=== PATIENT | female | born 1965 | race Caucasian/White ===

== ENCOUNTER 2016-10-23 23:33 | Inpatient (IN) ==
[2016-10-24 00:29] LABS: MANUAL DIFF NEEDED? NO
[2016-10-24] MEDS ORDERED: ZOFRAN IV ONE (00:31)
[2016-10-24] MEDS ORDERED: PHENERGAN IV ONE (00:31)
[2016-10-24] MEDS ORDERED: SODIUM CHLORIDE 0.9% INJ ONE (00:31)
[2016-10-24] MEDS ORDERED: MORPHINE IV ONE (00:31)
[2016-10-24] MEDS ORDERED: NS 1,000 ML IV ONE ×3 (00:32→03:58)
[2016-10-24 00:41] LABS: HEMATOCRIT 43.5 % (37.0-47.0); MCH 31.3 PG (27-31); MCHC 34.5 g/dL (33-37); MCV 90.6 FL (81-99); MPV 10.2 FL (7.4-10.4); PLT 334 X1000 (130-400)
[2016-10-24 00:42] LABS: BASO% 0.2 % (0.0-0.8); EOS# 0.01 X1000 (0.0-0.7); EOS% 0.1 % (0.0-10.0); IMM GRAN# 0.04 X1000 (0.0-0.04); IMM GRAN% 0.2 % (0.0-0.5); LYMPH# 1.46 X1000 (1.2-3.4); LYMPH% 8.5 % (20.5-51.1); MONO# 0.42 X1000 (0.11-0.59); MONO% 2.4 % (1.7-9.3); NEUT% 88.6 % (42.2-75.2)
[2016-10-24 00:58] LABS: AGAP 15; ALBUMIN 4.8 g/dL (3.5-5.0); ALKALINE PHOSPHATASE 113 U/L (32-104); AMYLASE 51 U/L (20-200); BUN 10 mg/dL (8-22); CALCIUM 10.4 mg/dL (8.8-10.2); CHLORIDE 91 mmol/L (98-107); COSMO 266; GOT 26 U/L (10-30); GPT 17 U/L (10-36); LIPASE 11 U/L (13-60); POTASSIUM 3.9 mmol/L (3.5-5.1); SODIUM 131 mmol/L (136-145); TCO2 25 mmol/L (25-35); TOTAL PROTEIN 8.4 g/dL (6.3-8.3)
[2016-10-24] MEDS ORDERED: DILAUDID IV ONE ×2 (02:16→05:16)
[2016-10-24] MEDS ORDERED: ZOFRAN IV PRN (02:17)
[2016-10-24] MEDS ORDERED: ZOSYN 3.375 GM/NS 3.375 GM/50 ML IVPB IV ONE (03:51)
[2016-10-24] MEDS ORDERED: LABETALOL ONE (05:07)
[2016-10-24] MEDS ORDERED: LABETALOL IV ONE (05:13)
[2016-10-24] MEDS ORDERED: DILAUDID ONE ×2 (05:20→19:19)
[2016-10-24] MEDS: ZOSYN IV SCH ×3 (07:50→17:48)
[2016-10-24] MEDS: [UNRECOGNIZED DRUG - OTHER] IV SCH ×3 (07:50→17:48)
--- NOTE | 2016-10-24 07:50 | Diag Imaging Result Document ---
PROCEDURE NAME: CT ABD/PELVIS W/ IV CONT ONLY - 10/24/2016 CT ABDOMEN AND PELVIS WITH INTRAVENOUS CONTRAST: TECHNIQUE: Dose-reduction protocol. FINDINGS: There is fatty infiltration of the liver. No focal hepatic abnormality. Normal spleen, pancreas, adrenal glands, gallbladder, and kidneys. No hydronephrosis. Moderate atherosclerosis. No aneurysmal dilatation to the abdominal aorta. There are distended small bowel loops in the upper, mid, and left abdomen. The distal small bowel loops are not dilated and the colon is not dilated. The uterus has been removed. No pelvic mass. [id number] amount of free fluid within the pelvis. No free air. No abscess. I believe the appendix has been removed. IMPRESSION: 1. Small bowel obstruction. This may represent a closed loop obstruction. 2. Fatty infiltration of the liver. 3. Hysterectomy with free fluid within the pelvis. A preliminary report was given at 1:44 a.m.
--- NOTE | 2016-10-24 07:56 | Diag Imaging Result Document ---
PROCEDURE NAME: ABRAHAM ABDOMEN - 10/24/2016 KUB: FINDINGS: There is an NG tube with its tip coiled in the fundus of the stomach. There are surgical clips in the pelvis. There is some retained contrast medium in the urinary bladder and collecting system of both kidneys. There is no evidence of hydronephrosis. IMPRESSION: No evidence of acute disease.
--- NOTE | 2016-10-24 08:07 | Diag Imaging Result Document ---
PROCEDURE NAME: CHEST-PORTABLE - 10/24/2016 PORTABLE CHEST, 10/24/2016 AT 0432 HOURS: FINDINGS: There is an NG tube which appears to pass to the gastroesophageal junction. There is no evidence of acute cardiac or pulmonary disease. IMPRESSION: NG tube in distal esophagus.
[2016-10-24 08:37] LABS: URINE CULTURE NEEDED? NO
[2016-10-24 08:48] LABS: BILIRUBIN URINE NEGATIVE (NEGATIVE); BLOOD URINE NEGATIVE (NEGATIVE); COLOR YELLOW; GLUCOSE URINE NEGATIVE (NEGATIVE); LEUKOCYTES URINE NEGATIVE (NEGATIVE); NITRITE URINE NEGATIVE (NEGATIVE); PH URINE 8.5; PROTEIN URINE 70 mg/dL (NEGATIVE); TURBIDITY URINE CLEAR (CLEAR); UROBILINOGEN URINE NORMAL (NORMAL)
[2016-10-24 08:49] LABS: URINE MICRO REVIEW NEEDED? YES
[2016-10-24 08:52] LABS: UR EPITHELIAL CELLS <10 /HPF (<10); URINE BACTERIA NEGATIVE /HPF; URINE RBC <10 /HPF (<10); URINE WBC <10 /HPF (<10)
[2016-10-24] MEDS: MORPHINE IV PRN ×2 (09:02→13:44)
[2016-10-24 09:03] LABS: HEMATOCRIT 42.5 % (37.0-47.0); HEMOGLOBIN 14.6 g/dL (12.0-16.0); MCH 31.7 PG (27-31); MCHC 34.4 g/dL (33-37); MCV 92.4 FL (81-99); MPV 10.7 FL (7.4-10.4); RBC 4.6 XMIL (4.2-5.4)
--- NOTE | 2016-10-24 09:06 | HISTORY AND PHYSICAL ---
ADMITTING DIAGNOSIS: Recurrent bowel obstruction. HISTORY OF PRESENT ILLNESS: A 51-year-old female with multiple medical comorbidities, presenting with abdominal pain. She has had several small bowel obstructions starting after a C- section and has had at least exploratory laparotomy, by patient's report 5-6 times with lysis of adhesions. She has had no bowel resections at that time. She reports that she did have initial abdominal pain described initially as kind of diffuse and cramping and says it is slightly more intense than her previous one. She did have a NG tube placed in the emergency room and has been hemodynamically stable in the emergency department. Says her pain is somewhat better. Transferred her over from [place]. PAST MEDICAL HISTORY: 1. Coronary artery disease with previous stents. 2. Hypertension. 3. Hyperlipidemia. PAST SURGICAL HISTORY: 1. Includes previous heart catheterization. 2. Multiple abdominal surgeries for bowel obstructions. 3. section. FAMILY HISTORY: Reviewed with patient and noncontributory. SOCIAL HISTORY: Reports alcohol and tobacco. ALLERGIES: None reported. HOME MEDICATIONS: Include Ambien and Seroquel. REVIEW OF SYSTEMS: A full 10 point review of systems obtained. Negative, except as specified in history of present illness. PHYSICAL EXAMINATION: VITAL SIGNS: Patient is currently afebrile. Temperature 98.5 degrees, pulse is regular at 95, respiratory rate nonlabored at 20, blood pressure 143/98. O2 saturation 100% on room air. GENERAL: No acute distress. female, resting in her bed. HEENT: Normocephalic, atraumatic. Pupils equal, round, reactive to light. Mucous membranes moist. Oropharynx benign. NG tube in place. Trachea midline. NECK: Supple. CARDIOVASCULAR: Regular rate and rhythm. LUNGS: Grossly clear. ABDOMEN: Soft, nondistended. Only minimal tenderness to palpation on exam this morning. No peritoneal signs. EXTREMITIES: Moves all extremities. NEUROLOGIC: Grossly intact. SKIN: No signs of jaundice. VASCULAR: All extremities perfused. LABORATORY: From early this morning white blood cell count is 17, hematocrit 43. Sodium is 131, chloride is 91. CT scan independently reviewed and radiology report reviewed. There is what appears to be a bowel obstruction likely related to adhesions. There is the potential for a closed looped obstruction. She does have air and stool pass this area. ASSESSMENT/PLAN: A 51-year-old, female with recurrent small-bowel obstruction and multiple medical comorbidities. 1. Recurrent small bowel obstruction. At this time, the patient has an NG tube. Had some relief of her symptoms. We will try conservative nonoperative management. Currently plan on surgical intervention if her clinical scenario and situation changes. We will get a small- bowel follow-through here today to see if there is any actual obstruction. We will follow up with results. Again, the patient does not look septic or have tachycardia. Overall clinical picture appear stable so we will see what that result is. Also order lactic acid level. 2. Medical comorbidities at this time. We will monitor. cc: Guillaume Gardner MD
[2016-10-24 09:13] LABS: URINE CASTS NONE SEEN; URINE CRYSTALS NONE SEEN; URINE SMALL ROUND CELLS NONE SEEN
[2016-10-24 09:14] LABS: URINE SOURCE CATH
[2016-10-24] MEDS ORDERED: SODIUM CHLORIDE 0.9% 20 ML ONE (17:06)
[2016-10-24] MEDS ORDERED: MARCAINE 0.25% PF ONE (17:06)
[2016-10-24] MEDS ORDERED: EXPAREL 1.3% ONE (17:07)
[2016-10-24] MEDS ORDERED: PEPCID ONE (17:07)
[2016-10-24] MEDS ORDERED: VERSED ONE (17:24)
[2016-10-24] MEDS ORDERED: CLAVE SECONDARY SET 11953 ONE (17:24)
--- NOTE | 2016-10-24 17:58 | Diag Imaging Result Document ---
PROCEDURE NAME: SMALL BOWEL SERIES ONLY - 10/24/2016 SMALL BOWEL SERIES: FINDINGS: Barium was placed into the stomach through the patient's nasogastric tube. Nine films through 6 hours obtained. There is normal passage of barium through the stomach into the duodenum. The duodenum is not dilated. A proximal to mid jejunal loop is dilated. No contrast goes distal to this area from 2 to 6 hours. There is air distended loop of bowel lateral to the loops filled with oral contrast. IMPRESSION: Small bowel obstruction. [facility]
[2016-10-24] MEDS ORDERED: LR 1,000 ML ONE (19:03)
[2016-10-24] MEDS ORDERED: MORPHINE PCA ONE (19:06)
[2016-10-24] MEDS ORDERED: FENTANYL ONE (19:19)
[2016-10-24] MEDS ORDERED: DIPRIVAN 1% ONE (19:19)
[2016-10-24] MEDS ORDERED: MORPHINE PCA IV PRN (20:23)
[2016-10-24] MEDS ORDERED: NARCAN IV PRN (20:23)
--- NOTE | 2016-10-24 22:33 | OPERATIVE NOTE ---
PROCEDURE DATE: 10/24/2016 PREOPERATIVE DIAGNOSIS: Small-bowel obstruction. POSTOPERATIVE DIAGNOSIS: 1. Closed loop small bowel obstruction secondary to volvulus secondary to adhesions. PROCEDURE: 1. Exploratory laparotomy. 2. Reduction of internal volvulus. 3. Lysis of adhesions. SURGEON: Guillaume Gardner MD FLORAL ARRANGER: None. ANESTHESIA: General tracheal intraoperative. FINDINGS: Segment of distal jejunum with closed loop obstruction because of 2 adhesive bands to the omentum. These were easily broken up. The bowel itself was viable and had a strong signal by Doppler. COMPLICATION: None at time of dictation. ESTIMATED BLOOD LOSS: 20 mL. SPECIMENS REMOVED: None. BRIEF HISTORY: The patient is a 51-year-old female with a significant past surgical history, presenting now with abdominal pain and what appeared to be a potential for closed loop small bowel obstruction by CT scan. We had placed an NG tube and did a small-bowel follow-through which did not show contrast going past this point. Her abdominal exam was worsening; therefore, we elected to take her back to the operating room. The risks, benefits, and alternatives were discussed. All questions answered. DESCRIPTION OF PROCEDURE: After informed consent was obtained, patient brought to the operative theatre, transferred to the operating table and placed in supine position. General endotracheal anesthesia was then performed without complication. A formal time-out was then performed confirming patient, date, procedure. All were in agreement. At that time, the patient after she had been prepped and draped we made a standard midline incision to enter into the abdomen. There were some adhesions and the omentum was noted to be stuck right up to abdominal wall. We took this down sharply. Once we had taken down a sufficient amount of the adhesions, we were able to eviscerate the small bowel. I was able to break up two adhesive bands that were located just to the left of the midline. This appeared to be causing her obstruction. We were able to eviscerate the small bowel. There was a segment of distal jejunum that appeared to be inflamed, but viable. It was the obvious point of obstruction. There was decompressed bowel distal to it. Once we had eviscerated, we did detorse the volvulus. Again, the bowel was viable. There were no serosal injuries. There were no areas of necrosis. We did place a Doppler on the small bowel and noted a strong signal. We elected to not resect any bowel. We were able to milk past the 2 adhesive bands that were not causing an ischemic stricture. The remainder of the abdomen did have dense adhesions, but since we had found the point of obstruction, we elected to not cause any more harm. We irrigated out the abdomen copiously, then closed the abdomen in the standard fashion using chromic for the peritoneum and loop PDS run from either side for the fascia. We placed abdullahi on the skin. The patient tolerated procedure well, was transferred to the ICU in stable condition. Postoperatively, we will keep her NG tube and wait return of bowel function. cc: Guillaume Gardner MD
[2016-10-24] MEDS: SODIUM CHLORIDE 0.9% INJ SCH (23:03)
[2016-10-24] MEDS: LR 1,000 ML IV SCH (23:03)
[2016-10-24] MEDS: PROTONIX IV SCH (23:03)
[2016-10-24] MEDS: HEPARIN SUBQ SCH (23:03)
[2016-10-25] MEDS: [UNRECOGNIZED DRUG - OTHER] IV SCH ×4 (00:30→18:02)
[2016-10-25] MEDS: ZOSYN IV SCH ×4 (00:30→18:02)
[2016-10-25] MEDS: HEPARIN SUBQ SCH ×3 (05:35→20:50)
--- NOTE | 2016-10-25 07:48 | PROGRESS NOTE ---
DATE: 10/25/2016 SUBJECTIVE: Patient doing well after her exploratory laparotomy. Says her pain is improved. She is just sore from her incision. No passage of flatus yet. OBJECTIVE: Vital Signs: Patient is currently afebrile. Her vital signs are stable. General: No acute distress. Cardiovascular: Regular rate and rhythm. Lungs: Grossly clear. Abdomen: Soft, appropriately tender. Hypoactive bowel sounds. Extremities: Moves all extremities. Neurologic: Grossly intact. Skin: No signs of jaundice. LABORATORY: None today. ASSESSMENT AND PLAN: A 51-year-old, female, postoperative day 1 from exploratory laparotomy and reduction of internal volvulus from adhesions. Postoperative state at this time, patient has NG tube. We will keep NG tube in place until she has return of bowel function. Suspect this may take a couple of days. Overall, the clinical picture is improving. We will continue to follow. cc: Guillaume Gardner MD
[2016-10-25] MEDS ORDERED: NEOSTIGMINE ONE (08:39)
[2016-10-25] MEDS ORDERED: EXTENSION SET 32 IN 4522 ONE (08:39)
[2016-10-25] MEDS ORDERED: ZOFRAN ONE (08:39)
[2016-10-25] MEDS ORDERED: ANESTHESIA PB SET 88 IN 5742 ONE (08:39)
[2016-10-25] MEDS ORDERED: LR 2,000 ML ONE (08:39)
[2016-10-25] MEDS ORDERED: NORCURON ONE (08:39)
[2016-10-25] MEDS ORDERED: XYLOCAINE-MPF 2% ONE (08:39)
[2016-10-25] MEDS ORDERED: SODIUM CHLORIDE 0.9% 10 ML ONE (08:39)
[2016-10-25] MEDS ORDERED: QUELICIN (DOSE) ONE (08:39)
[2016-10-25] MEDS ORDERED: ROBINUL ONE (08:39)
[2016-10-25] MEDS: PERIDEX MT SCH ×2 (08:50→20:49)
[2016-10-25] MEDS: LR 1,000 ML IV SCH ×3 (12:32→20:48)
[2016-10-25] MEDS: ZOFRAN IV PRN (18:04)
[2016-10-25] MEDS: PROTONIX IV SCH (20:50)
[2016-10-25] MEDS: SODIUM CHLORIDE 0.9% INJ SCH (20:50)
[2016-10-26] MEDS: ZOSYN IV SCH ×4 (01:17→17:30)
[2016-10-26] MEDS: [UNRECOGNIZED DRUG - OTHER] IV SCH ×4 (01:17→17:30)
[2016-10-26] MEDS: ZOFRAN IV PRN ×4 (01:17→17:20)
[2016-10-26] MEDS: LR 1,000 ML IV SCH ×4 (03:41→17:47)
[2016-10-26] MEDS: HEPARIN SUBQ SCH ×3 (05:43→20:39)
--- NOTE | 2016-10-26 06:34 | PROGRESS NOTE ---
DATE: 10/26/2016 SUBJECTIVE: Patient doing well. Pain has improved. She has not passed flatus yet. She is not sick to her stomach. OBJECTIVE: Vital Signs: Patient is currently afebrile. Her heart rate is in the low 100, but she reports this is normal for her; otherwise, vital signs have been stable. General: No acute distress. Cardiovascular: Regular rate and rhythm. Lungs: Grossly clear. Abdomen: Soft, appropriately tender. Bowel sounds auscultated but appear on the hypoactive side. LABORATORY: None today. ASSESSMENT AND PLAN: A 51-year-old, female, postoperative day #2 from exploratory laparotomy with reduction of internal volvulus from adhesions. Postoperative day #2: At this time, patient has a nasogastric tube which we will keep in place. Has 500 recorded of bilious output. Her bowels seem to be returning to function, although we will wait for flatus before removing her nasogastric tube. Once the start her on a liquid diet. We will continue to follow. Overall, her clinical picture is improving. The patient is improving. We will remove her Brooks catheter and let her mobilize a little bit more. cc: Guillaume Gardner MD
[2016-10-26] MEDS: PERIDEX MT SCH ×2 (08:37→20:39)
[2016-10-26] MEDS: PROTONIX IV SCH (20:39)
[2016-10-26] MEDS: SODIUM CHLORIDE 0.9% INJ SCH (20:39)
[2016-10-27] MEDS: ZOSYN IV SCH ×5 (01:11→17:49)
[2016-10-27] MEDS: [UNRECOGNIZED DRUG - OTHER] IV SCH ×5 (01:11→17:49)
[2016-10-27] MEDS: ZOFRAN IV PRN (01:11)
[2016-10-27] MEDS: LR 1,000 ML IV SCH ×4 (02:12→22:33)
[2016-10-27] MEDS: HEPARIN SUBQ SCH ×3 (05:49→22:33)
--- NOTE | 2016-10-27 06:06 | PROGRESS NOTE ---
DATE: 10/27/2016 SUBJECTIVE: The patient is doing well. No nausea. She states she passed a small amount of flatus. No bowel movement. OBJECTIVE: Vital Signs: Patient is currently afebrile. Her vital signs have been stable. General: No acute distress. Cardiovascular: Regular rate and rhythm. Lungs: Clear. Abdomen: Soft, appropriately tender. Bowel sounds auscultated. LABORATORY: None. ASSESSMENT/PLAN: A 51-year-old female, postop day 3 from exploratory laparotomy with reduction of internal volvulus from adhesions. Postop day #3 at this time. We will clamp her NG tube and start her on clear liquids. Monitor her return of bowel function. Overall, clinical status is improving. We will continue to monitor closely. cc: Guillaume Gardner MD
[2016-10-27] MEDS: PERIDEX MT SCH ×2 (09:19→22:33)
[2016-10-27] MEDS: SODIUM CHLORIDE 0.9% INJ SCH (22:33)
[2016-10-27] MEDS: PROTONIX IV SCH (22:33)
[2016-10-28] MEDS: [UNRECOGNIZED DRUG - OTHER] IV SCH (03:34)
[2016-10-28] MEDS: ZOSYN IV SCH (03:34)
[2016-10-28] MEDS: LR 1,000 ML IV SCH (03:34)
[2016-10-28] MEDS ORDERED: NORCO-10 PO PRN (06:17)
[2016-10-28] MEDS ORDERED: XANAX PO PRN (06:18)
[2016-10-28] MEDS: HEPARIN SUBQ SCH ×3 (06:26→23:12)
--- NOTE | 2016-10-28 07:31 | PROGRESS NOTE ---
DATE: 10/28/2016 SUBJECTIVE: The patient is doing well and had a bowel movement. No nausea with her NG tube clamped and tolerating clear liquid diet. OBJECTIVE: Vital Signs: Patient is currently afebrile. Her vital signs have been stable. General: No acute distress. Cardiovascular: Regular rate and rhythm. Lungs: Grossly clear. Abdomen: Soft, appropriately tender. Incision healing well. LABORATORIES: None. ASSESSMENT/PLAN: A 51-year-old female, postop day 3 from exploratory laparotomy with suction of internal volvulus from adhesions. At this time, patient's NG tube will be removed. We will stop her IV fluids. We will start her on a regular diet. 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 pain medicine. Hopefully, she will be able to be discharged home over the weekend. cc: Guillaume Gardner MD
[2016-10-28] MEDS: TYLENOL WITH CODEINE #3 PO SCH ×3 (09:25→23:11)
[2016-10-28] MEDS: PERIDEX MT SCH ×2 (09:25→23:12)
[2016-10-28] MEDS: PATIENT'S OWN MED PO SCH (09:29)
[2016-10-28] MEDS ORDERED: AMBIEN PO SCH (21:00)
[2016-10-28] MEDS ORDERED: SEROQUEL PO SCH (21:00)
[2016-10-28] MEDS: PROTONIX IV SCH (23:11)
[2016-10-29] MEDS: TYLENOL WITH CODEINE #3 PO SCH ×2 (02:36→10:38)
[2016-10-29] MEDS: HEPARIN SUBQ SCH (06:29)
[2016-10-29 07:26] VITALS: BP 159/86
--- NOTE | 2016-10-29 08:56 | PROGRESS NOTE ---
DATE: 10/29/2016 SUBJECTIVE: She feels well. She is passing gas. She is tolerating a regular diet. No real pain Has not required narcotics today. She is voiding and ambulating. OBJECTIVE: Vital signs: She is afebrile. Pulse has been in the 90s for the most part. Blood pressure 159/86, oxygen saturation 90% on room air. General: She is alert. Abdomen: Soft, nontender, nondistended. Incision is clean, dry, and intact with abdullahi. LABS: I reviewed her labs. There is nothing new today. ASSESSMENT AND PLAN: A 51-year-old female status post exploratory laparotomy with lysis of adhesions for a bowel obstruction. She has had return of bowel function. She is tolerating a diet. Pain is controlled. She is voiding. Plan for discharge home today. DISCHARGE MEDICATIONS: She will continue her home medication. I gave her a prescription for [place], Colace, and Zofran. We had detailed postoperative instructions given, what to look out for as far as wound issues, fevers. She is to avoid heavy lifting greater than 10 pounds, see Dr. Gardner in a week for staple removal. Will make further recommendations regarding return to work at that time. cc: MD Guillaume Rivera MD
[2016-10-29] MEDS: PERIDEX MT SCH (09:23)
[2016-10-29] MEDS: PATIENT'S OWN MED PO SCH (09:23)
--- NOTE | 2016-11-02 06:08 | DISCHARGE SUMMARY ---
ADMISSION DATE: 10/24/2016 DISCHARGE DATE: 10/29/2016 ADMITTING DIAGNOSIS: Small-bowel obstruction. DISCHARGE DIAGNOSIS: Status post exploratory laparotomy and lysis of adhesions for small bowel obstruction. ADMITTING PHYSICIAN: Guillaume Gardner MD. CONSULTATIONS: None. PROCEDURES: On 10/24/2016 patient underwent exploratory laparotomy with lysis of adhesions and reduction of internal volvulus secondary to adhesions. BRIEF HISTORY AND COURSE OF STAY: Patient is a 51-year-old female presenting initially with a small-bowel obstruction. We initially tried to do a small-bowel series which showed potential for complete obstruction. Given this and her worsening clinical condition, we elected to take her to the operating room. On the initial day of presentation she was taken to the operating room and underwent previously described procedure which she tolerated well. She improved clinically and over the course of the next several days her bowel function returned. It was felt that on the day of discharge, 10/29/2016, it was safe for the patient to be discharged home, all arrangements were made. She was up ambulating, tolerating p.o., having bowel movements without any difficulty and her incision was healing well. Therefore it is felt the patient is safe to be discharged home. DISPOSITION: Home. DISCHARGE CONDITION: Stable. MEDICATIONS: Patient given a prescription for pain medicine. FOLLOWUP: The patient was told to follow up with me in 1-2 weeks. cc: Guillaume Gardner MD
--- NOTE | 2016-12-01 18:52 | PROVIDER DOCUMENTATION ---
This chart was entered by Nu Bone Scribe, acting as scribe for Daryl Chin DO. HPI-Abdominal Pain/GI Problem - General Chief Complaint: Abdominal Pain Stated Complaint: GALL BLADDER SX Time Seen by Provider: 10/24/16 00:04 Source: patient Allergies/Adverse Reactions: Patient Allergies Allergy/AdvReac Type Severity Reaction Status Date / Time No Known Allergies Allergy Verified 11/04/16 13:17 Home Medications: Home Medication List Medication Instructions Recorded Confirmed Last Taken Type Zolpidem [Ambien] 10 mg PO HS 09/15/12 11/04/16 02/20/15 20:00 History Alprazolam [Xanax] 1 tab PO PRN PRN 01/22/14 11/04/16 02/20/15 20:00 History Quetiapine Fumarate [Seroquel] 100 mg PO QHS 10/24/16 11/04/16 Unknown History Docusate Sodium [Colace] 100 mg PO BID #60 capsule 10/29/16 11/04/16 Unknown Rx Ondansetron HCl [Zofran] 4 mg PO Q4H PRN PRN #10 tablet 10/29/16 11/04/16 Unknown Rx - History of Present Illness-ABD Nature of Presenting Problems: PT IS A 51YOF PRESENTING TO THE ED C/O ABD PAIN. PT STATES SHE BEGAN HAVING ABD PAIN THIS AFTERNOON FOLLOWED BY NAUSEA AND VOMITING NO DIARRHEA AT THIS TIME. PT DOES HAVE A HX OF BOWEL OBSTRUCTION. NO OTHER COMPLAINTS NOTED AT THIS TIME Abdominal Pain Onset Location: reports: generalized abdomen Pain Radiation: reports: no radiation Quality of Pain: reports: aching, cramping, fullness Severity in ED: reports: moderate Onset/Duration: reports: 4-6 hours ago Timing: reports: still present Activities at Onset: reports: light activity Exposure to sick contacts?: No Modifying Factors: improves with: nothing Associated Symptoms: reports: fatigue, loss of appetite, nausea, vomiting. denies: chest pain, diarrhea, trouble walking Last BM: unsure Dark Stools Present?: reports: none noticed Rectal Bleeding: reports: none Rectal Pain: reports: none Emesis Description: reports: none Bruising or Bleeding Gums?: No Similar Symptoms Previously?: No Recently seen or treated by another doctor?: No Review of Systems - Adult - REVIEW OF SYSTEMS - ADULT Constitutional: reports: no symptoms reported Eyes: reports: no symptoms reported Ears, Nose, Mouth & Throat: reports: no symptoms reported Cardiovascular: reports: no symptoms reported Respiratory: reports: no symptoms reported Gastrointestinal: reports: see HPI, abdominal pain, nausea, poor appetite, vomiting Genitourinary: reports: no symptoms reported Musculoskeletal: reports: no symptoms reported Integumentary: reports: no symptoms reported Neurological: reports: no symptoms reported Psychiatric: reports: no symptoms reported Endocrine: reports: no symptoms reported Hematologic/Lymphatic: reports: no symptoms reported Allergic/Immunologic: reports: no symptoms reported All Other Systems: Reviewed and Negative Past History - Adult - PAST MEDICAL HISTORY-ADULT Review of Records: reports: Old Records Reviewed, Nursing Assessment Review, Medications Reviewed, Social history reviewed & non-contributory. Major Childhood Illnesses: reports: denies history Cardiovascular: reports: CAD, HTN Respiratory: reports: denies history Gastrointestinal: reports: denies history Obstetrical/Gynecological: reports: denies history Genitourinary: reports: denies history Musculoskeletal: reports: denies history Neurological: reports: denies history Psychiatric: reports: anxiety Endocrine/Immune: reports: denies history Other Conditions: reports: denies history - PRIOR SURGERIES/PROCEDURES Surgical/Procedure History: reports: cardiac stent (4 years ago), hysterectomy, other (last stress test about 2 yrs ago.) - IMMUNIZATION STATUS Childhood Immunizations: See Nurse Assessment Flu Vaccine: See Nurse Assessment - FAMILY HISTORY Family History: reviewed, not pertinent - SOCIAL HISTORY Smoking: cigarettes, greater than 1 pack/day Provider spent 3-5 mins advising pt. on dangers of tobacco.: Discussed manners to quit use, and f/u contacts for add'l counseling. Substance Use: none/never, alcohol Alcohol Use Frequency: once a week Number of drinks per typical drinking period:: 3-4 drinks Living Situation: family Physical Exam-General - PHYSICAL EXAM-ADULT Initial Vital Signs Reviewed: Yes - CONSTITUTIONAL General Appearance: alert, mild distress, moderate distress. negative: appears well, no apparent distress - EYES Eyes: PERRL/EOMI, pink conjunctivae, FUN - HEAD, EARS, NOSE, MOUTH & THROAT HENMT: normocephalic/atraumatic, moist mucous membranes, normal ENT inspection, TMs normal, pharynx normal - NECK Neck: non-tender, full range of motion, supple, normal inspection - RESPIRATORY Respiratory: chest non-tender, lungs clear, normal breath sounds, no pleuratic chest pain, no respiratory distress, no accessory muscle use - CARDIOVASCULAR Cardiovascular: normal peripheral pulses, regular rate, rhythm, no edema, no gallop, no JVD, no murmur - GASTROINTESTINAL (ABDOMEN) Abdominal Exam: normal bowel sounds, soft, no organomegaly, no pulsatile mass, tenderness. negative: non tender, distended, guarding - LYMPHATIC Lymphatic: no adenopathy - MUSCULOSKELETAL Back Exam: normal inspection, no CVA tenderness, no vertebral tenderness Extremity: normal range of motion, non-tender, normal gait, normal inspection, no pedal edema, no calf tenderness, normal capillary refill, pelvis stable - SKIN Integumentary: normal color, normal turgor, warm/dry - NEUROLOGIC Neurologic: 3d artist II-XII nml as tested, grossly normal, no motor/sensory deficits - PSYCHIATRIC Psych/Mental Status: normal thought content, normal thought process, oriented x 3, anxious Progress - PLAN OF CARE/RESULTS Progress/Plan/Lab Results: Vital Signs - 8 hr 10/23/16 23:59 Temperature 95.9 F L Pulse Rate 96 H Respiratory Rate 22 Blood Pressure 170/92 O2 Sat by Pulse Oximetry 100 Laboratory Results - last 24 hr 10/24/16 10/24/16 00:25 00:25 WBC 17.25 H RBC 4.80 Hgb 15.0 Hct 43.5 MCV 90.6 MCH 31.3 H MCHC 34.5 RDW Std Deviation 13.6 Plt Count 334 MPV 10.2 Immature Gran % (Auto) 0.2 Neut % (Auto) 88.6 H Lymph % (Auto) 8.5 L Hemphill % (Auto) 2.4 Eos % (Auto) 0.1 Baso % (Auto) 0.2 Immature Gran # (Auto) 0.04 Neut # (Auto) 15.29 H Lymph # (Auto) 1.46 Hemphill # (Auto) 0.42 Eos # (Auto) 0.01 Baso # (Auto) 0.03 Sodium 131 L Potassium 3.9 Chloride 91 L Carbon Dioxide 25 Anion Gap 15 BUN 10 Creatinine 0.7 BUN/Creatinine Ratio 14 Glucose 183 H Calculated Osmolality 266 Calcium 10.4 H Total Bilirubin 0.40 AST 26 ALT 17 Alkaline Phosphatase 113 H Total Protein 8.4 H Albumin 4.8 Globulin 4.0 Albumin/Globulin Ratio 1.0 Amylase 51 Lipase 11 L Orders Category Date Time Status Saline Loc DIRECTED Care 10/24/16 00:04 Active NPO Diet 10/24/16 00:[address] ABD/PELVIS W/ IV CONT ONLY [CT] Stat Exams 10/24/16 00:05 Ordered AMYLASE [CHEM] Stat Lab 10/24/16 00:25 Completed CBC WITH ELECTRONIC DIFF [HEME] Stat Lab 10/24/16 00:25 Completed COMPREHENSIVE METABOLIC PANEL [CHEM] Stat Lab 10/24/16 00:25 Completed LIPASE [CHEM] Stat Lab 10/24/16 00:[address] W/POSS RFLX CULT [URINALYSIS] Stat Lab 10/24/16 00:04 Uncollected 0.9% Sodium Chloride Inj [Ns] 1,000 ml Med 10/24/16 00:32 Active IV 999 mls/hr Morphine Med 10/24/16 00:31 Discontinued 2 mg IV NOW ONE Ondansetron [Zofran] Med 10/24/16 00:31 Discontinued 4 mg IV NOW ONE Promethazine [Phenergan] Med 10/24/16 00:31 Discontinued 12.5 mg IV NOW ONE Sodium Chloride 0.9% Med 10/24/16 00:31 Discontinued 10 ml INJ NOW ONE Result Diagrams: 10/24/16 08:38 10/24/16 00:25 Departure - Departure Time of Disposition Decision: 09:32 DIAGNOSIS: Small bowel obstruction Disposition: ADMITTED INPATIENT 09 Certified Medical Emergency: Emergent Condition: Stable - Critical Care Note This patient required my direct & personal management of CC.: No This chart was documented by the indicated scribe, (Nu Bone Scribe) and accurately reflects the services I performed and decisions made by me, Daryl Chin DO, as attested by the provider's signature.
== END 2016-10-29 10:45 | disposition home or self-care (01) ==
LOC: P.ED 23:33 → 4N 10-24 04:10
PROVIDERS: ADMIT Surgery; ATTEND Surgery

== ENCOUNTER 2016-11-04 10:33 | Inpatient (IN) ==
--- NOTE | 2016-11-04 12:50 | Diag Imaging Result Document ---
PROCEDURE NAME: FLAT/UPRIGHT ABD/1 VIEW CHEST - 11/04/2016 FRONTAL CHEST X-RAY AND TWO VIEWS OF THE ABDOMEN: COMPARISON: 10/24/2016. FINDINGS: There is some minimal atelectasis in the lateral right lung base. Otherwise, no infiltrates. Heart size and pulmonary vascularity is normal. There are laparotomy skin abdullahi. There are now even more, extensive abnormally gas-distended loops of small bowel. These measure up to 4.4 cm. No free air. There is some stool and gas throughout the colon and rectum. IMPRESSION: Severely distended small bowel consistent with diffuse ileus or distal obstruction.
[2016-11-04 13:23] LABS: MANUAL DIFF NEEDED? NO
[2016-11-04 13:39] LABS: BASO% 0.5 % (0.0-0.8); EOS# 0.61 X1000 (0.0-0.7); EOS% 3.3 % (0.0-10.0); HEMATOCRIT 40.1 % (37.0-47.0); HEMOGLOBIN 13.7 g/dL (12.0-16.0); IMM GRAN# 0.07 X1000 (0.0-0.04); IMM GRAN% 0.4 % (0.0-0.5); LYMPH# 2.42 X1000 (1.2-3.4); MCH 31.5 PG (27-31); MCHC 34.2 g/dL (33-37); MCV 92.2 FL (81-99); MONO# 1.29 X1000 (0.11-0.59); MONO% 6.9 % (1.7-9.3); MPV 10.5 FL (7.4-10.4); NEUT% 75.9 % (42.2-75.2); PLT 622 X1000 (130-400); RBC 4.35 XMIL (4.2-5.4)
[2016-11-04 13:42] LABS: PROTIME 10.5 Seconds (9.2-11.7)
[2016-11-04 13:50] LABS: AGAP 14; ALBUMIN 3.9 g/dL (3.5-5.0); ALKALINE PHOSPHATASE 114 U/L (32-104); BUN 5 mg/dL (8-22); CALCIUM 9.1 mg/dL (8.8-10.2); CHLORIDE 94 mmol/L (98-107); COSMO 269; GOT 52 U/L (10-30); GPT 67 U/L (10-36); POTASSIUM 3.9 mmol/L (3.5-5.1); SODIUM 136 mmol/L (136-145); TCO2 28 mmol/L (25-35); TOTAL BILIRUBIN 0.34 mg/dL (0.20-1.00); TOTAL PROTEIN 7.8 g/dL (6.3-8.3)
[2016-11-04] MEDS ORDERED: NS 1,000 ML IV ONE (13:56)
--- NOTE | 2016-11-04 14:02 | PROVIDER DOCUMENTATION ---
This chart was entered by Stacy Moore Scribe, acting as scribe for Frank Turner Jr, MD. HPI-Abdominal Pain/GI Problem - General Chief Complaint: Vomiting Stated Complaint: ESOUPHAGAL PAIN Time Seen by Provider: 11/04/16 12:15 Source: patient Allergies/Adverse Reactions: Patient Allergies Allergy/AdvReac Type Severity Reaction Status Date / Time No Known Allergies Allergy Verified 11/04/16 13:17 Home Medications: Home Medication List Medication Instructions Recorded Confirmed Last Taken Type Zolpidem [Ambien] 10 mg PO HS 09/15/12 11/04/16 02/20/15 20:00 History Alprazolam [Xanax] 1 tab PO PRN PRN 01/22/14 11/04/16 02/20/15 20:00 History Quetiapine Fumarate [Seroquel] 100 mg PO QHS 10/24/16 11/04/16 Unknown History Docusate Sodium [Colace] 100 mg PO BID #60 capsule 10/29/16 11/04/16 Unknown Rx Ondansetron HCl [Zofran] 4 mg PO Q4H PRN PRN #10 tablet 10/29/16 11/04/16 Unknown Rx - History of Present Illness-ABD Nature of Presenting Problems: Pt is 51 y/o F presents to the ED with epigastric pain. Pt states N and V. Pt states recent SBO surgery. Pt states 20 episodes of vomiting. Pt denies F Abdominal Pain Onset Location: reports: epigastric Pain Radiation: reports: no radiation Quality of Pain: reports: aching Severity in ED: reports: mild Onset/Duration: reports: 2 days ago Timing: reports: still present, getting worse Activities at Onset: reports: light activity Exposure to sick contacts?: No Modifying Factors: improves with: nothing Associated Symptoms: reports: nausea, vomiting. denies: anxiety, arm pain, back /neck pain, chest pain, constipation, cough, diaphoresis, diarrhea, dizziness, EENT symptoms, fatigue, fever/chills, genitourinary problems, headaches, heartburn, joint pain, loss of appetite, malaise, muscle aches, sinus congestion /drainage, rash, seizure, shortness of breath, sensory/motor loss, pain with inspiration, swelling/mass in abdomen, syncope, weakness, trouble walking Last BM: last night Dark Stools Present?: reports: none noticed Rectal Bleeding: reports: none # of Vomiting Episodes: 20 Emesis Description: reports: other (green) Bruising or Bleeding Gums?: No Similar Symptoms Previously?: Yes Recently seen or treated by another doctor?: No Review of Systems - Adult - REVIEW OF SYSTEMS - ADULT Constitutional: reports: no symptoms reported Eyes: reports: no symptoms reported Ears, Nose, Mouth & Throat: reports: no symptoms reported Cardiovascular: reports: irregular heart rate (tachy). denies: chest pain, heart murmur Respiratory: reports: no symptoms reported Gastrointestinal: reports: abdominal pain (epigastric), nausea, vomiting. denies: diarrhea Genitourinary: reports: no symptoms reported Musculoskeletal: reports: no symptoms reported Integumentary: reports: no symptoms reported Neurological: reports: no symptoms reported Psychiatric: reports: no symptoms reported Endocrine: reports: no symptoms reported Hematologic/Lymphatic: reports: no symptoms reported Allergic/Immunologic: reports: no symptoms reported All Other Systems: Reviewed and Negative Past History - Adult - PAST MEDICAL HISTORY-ADULT Review of Records: reports: Nursing Assessment Review, Medications Reviewed, Social history reviewed & non-contributory. Major Childhood Illnesses: reports: denies history Cardiovascular: reports: CAD, HTN, hyperlipidemia, [place] Respiratory: reports: denies history Gastrointestinal: reports: denies history Obstetrical/Gynecological: reports: denies history Genitourinary: reports: denies history Musculoskeletal: reports: denies history Neurological: reports: denies history Psychiatric: reports: anxiety Endocrine/Immune: reports: denies history Other Conditions: reports: denies history - PRIOR SURGERIES/PROCEDURES Surgical/Procedure History: reports: cardiac stent (4 years ago), hysterectomy, , other (last stress test about 2 yrs ago.) - IMMUNIZATION STATUS Childhood Immunizations: See Nurse Assessment Flu Vaccine: See Nurse Assessment - FAMILY HISTORY Family History: reviewed, not pertinent - SOCIAL HISTORY Smoking: cigarettes, greater than 1 pack/day Provider spent 3-5 mins advising pt. on dangers of tobacco.: Discussed manners to quit use, and f/u contacts for add'l counseling. Substance Use: alcohol Alcohol Use Frequency: occasionally Number of drinks per typical drinking period:: 2 drinks Living Situation: family Physical Exam-General - PHYSICAL EXAM-ADULT Initial Vital Signs Reviewed: Yes - CONSTITUTIONAL General Appearance: alert, no apparent distress - EYES Eyes: PERRL/EOMI, pink conjunctivae - HEAD, EARS, NOSE, MOUTH & THROAT HENMT: normocephalic/atraumatic, moist mucous membranes, normal ENT inspection, other (dentures present) - NECK Neck: supple, normal inspection - RESPIRATORY Respiratory: chest non-tender, lungs clear, normal breath sounds - CARDIOVASCULAR Cardiovascular: normal peripheral pulses, tachycardia - GASTROINTESTINAL (ABDOMEN) Abdominal Exam: normal bowel sounds, soft, distended, tenderness (epigastric), other (surgical incision clean and intact with abdullahi) - LYMPHATIC Lymphatic: no adenopathy - MUSCULOSKELETAL Back Exam: normal inspection, no CVA tenderness, no vertebral tenderness Extremity: normal range of motion, non-tender - SKIN Integumentary: normal color, normal turgor, warm/dry, ecchymosis (to abdomen) - NEUROLOGIC Neurologic: grossly normal - PSYCHIATRIC Psych/Mental Status: normal mood/affect, oriented x 3 Progress - PLAN OF CARE/RESULTS Progress/Plan/Lab Results: Vital Signs - 8 hr 11/04/16 10:43 Temperature 98.1 F Pulse Rate 115 H Respiratory Rate 18 Blood Pressure 134/84 O2 Sat by Pulse Oximetry 99 Laboratory Results - last 24 hr 11/04/16 11/04/16 13:14 13:14 WBC 18.67 H RBC 4.35 Hgb 13.7 Hct 40.1 MCV 92.2 MCH 31.5 H MCHC 34.2 RDW Std Deviation 13.5 Plt Count 622 H MPV 10.5 H Immature Gran % (Auto) 0.4 Neut % (Auto) 75.9 H Lymph % (Auto) 13.0 L Anderson % (Auto) 6.9 Eos % (Auto) 3.3 Baso % (Auto) 0.5 Immature Gran # (Auto) 0.07 H Neut # (Auto) 14.18 H Lymph # (Auto) 2.42 Anderson # (Auto) 1.29 H Eos # (Auto) 0.61 Baso # (Auto) 0.10 PT 10.5 INR 1.00 Orders Category Date Time Status flat [FLAT/UPRIGHT ABD/1 VIEW CHEST] [RAD] Stat Exams 11/04/16 12:14 Draft CBC WITH ELECTRONIC DIFF [HEME] Stat Lab 11/04/16 13:14 Completed CMP [COMPREHENSIVE METABOLIC PANEL] [CHEM] Stat Lab 11/04/16 13:14 Received PROTIME WITH INR [COAG] Stat Lab 11/04/16 13:14 Completed Result Diagrams: 11/04/16 13:14 11/04/16 13:14 - XRAY 1 XRAY: Bilateral XRAY Study: Chest, Abdomen Impression: Abnormal XRAY Interpretation: high grade SBO or ileus - CONSULTS/PCP/HOSPITALIST Notification #1 *Consult/PCP/Hospitalist*: Dr. Rodriges Time Discussed: 13:59 (Dr. Rodriges states admit to Dr. Gardner) Reason/Comments: Dr. Turner consulted with Dr. Rodriges about PT Consult Disposition: Admit Departure - Departure Time of Disposition Decision: 14:01 DIAGNOSIS: Small bowel obstruction Disposition: HOME 01 Certified Medical Emergency: Emergent Condition: Good Referrals and Follow-Ups: Logan Luu [Primary Care Provider] - This chart was documented by the indicated scribe, (Stacy Moore Scribe) and accurately reflects the services I performed and decisions made by , Frank Turner Jr, MD, as attested by the provider's signature.
[2016-11-04] MEDS: MORPHINE IV PRN ×3 (17:00→21:31)
[2016-11-04] MEDS ORDERED: XANAX PO PRN (20:35)
--- NOTE | 2016-11-04 21:28 | HISTORY AND PHYSICAL ---
HISTORY OF PRESENT ILLNESS: Ms. Adelaide Vegas is a 51-year-old white female patient Dr. Logan Luu who on 10/24/2016 underwent exploratory laparotomy by Dr. Guillaume Gardner for small bowel obstruction. She has a history of multiple abdominal surgeries including general surgery exploratory laparotomies and HYPOID GEAR GENERATOR surgery. He performed lysis of adhesions. She stayed 5 days postop and was discharged home on 10/29/2016. The 1st several days at home she was having flatus and even bowel movements but she only ate lightly. Over the last 24-48 hours. She has had vomiting mostly Monday night and night. night she vomited all night and she called our office today and was told to go to the emergency department where they evaluated her. She had an abnormal flat and upright abdominal film with dilated loops of small bowel and because of her nausea and abnormal x-ray she was admitted to Dr. Gardner's service and I evaluated her this evening. She has refused an NG tube and has had no vomiting since getting to the floor. PAST MEDICAL HISTORY: She has had 2 C sections, her 1st was [address] Scott operated on her in [place] for bowel obstruction. Dr. Rosado has operated on her for endometriosis and hysterectomy and oophorectomy. In all she says that she has had 3 low transverse incisions and at least 3 midline abdominal incisions over the last 30 years for HYPOID GEAR GENERATOR problems and small-bowel obstructions. MEDICATIONS: Ambien, Seroquel and Xanax for occasional spasms of her esophagus. ALLERGIES: No known drug allergies. 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 She lives in [place] with her and she has 2 children that live close by. Dr. Logan Luu is her primary care physician. She smokes 1-1/2 packs of cigarettes a day. REVIEW OF SYSTEMS: She has had flatus. She has had a bowel movement since her discharge. She feels that she is healthy besides her abdomen which intermittently over the last 30 years has required surgery for obstruction or endometriosis. She has complained recently of heartburn. She also has some problems with dysphagia and feels that food gets stuck in her distal esophagus. REVIEW OF SYSTEMS: A 14-point review of systems was performed and besides the history of present illness and what I just described was essentially negative. FAMILY HISTORY: Noncontributory. PHYSICAL EXAMINATION: GENERAL: Ms. Vegas is a middle aged white female, she is of good weight. She seems strong and healthy. She is awake and cooperative. She does not have an NG tube in. She does not appear to be nauseated or sick at this time. HEENT: She had no jaundice, no oral lesions. No cervical or supraclavicular lymphadenopathy. HEART: Has a regular rate. LUNGS: Clear to auscultation and percussion bilaterally. She has no shortness of breath. ABDOMEN: Not tightly distended. It seems to be a little bit distended. She has a healing midline incision that still has skin clips in place. There does not appear to be any infection involving this incision. It seems to be healing well. There is no significant tenderness to palpation of her abdomen. No costovertebral tenderness. RECTAL/VAGINAL: Exams were not performed. EXTREMITIES: She does have palpable peripheral pulses. No peripheral edema and no focal deficits. DIAGNOSTIC DATA: Flat and upright abdominal film shows significantly dilated small bowel but it also showed some air in stool in her colon. Her white blood cell count was 18, her hematocrit is 40. Electrolytes were essentially normal. There was no free air by flat and upright abdominal films. VITAL SIGNS: Her temperature is 98.1 degrees, pulse is 115, blood pressure 134/84, O2 saturation 99%. IMPRESSION: Postoperative ileus versus obstruction versus bowel obstruction in a patient who has recently had exploratory laparotomy by Dr. Guillaume Gardner and has had a significant amount of abdominal surgeries. She has refused an NG tube for treatment at this time. She does seem to be comfortable. She states that she is passing gas and we will slowly introduce clear liquids and restart her home medications. We will give her p.o. Pepcid or Protonix because of her reflux disease. She is having some dysphasia which electively may have to be evaluated with EGD. We will repeat laboratory data and flat and upright abdominal films in the morning. She is receiving IV fluids today. I discussed her care with her. cc: MD Guillaume Cevallos MD
[2016-11-04] MEDS: COLACE PO SCH (21:31)
[2016-11-04] MEDS: SEROQUEL PO SCH (21:31)
[2016-11-04] MEDS: ZOFRAN PO PRN (21:31)
[2016-11-05] MEDS: AMBIEN PO SCH ×2 (00:22→22:44)
[2016-11-05] MEDS: MORPHINE IV PRN ×6 (03:37→22:44)
[2016-11-05 05:44] LABS: MANUAL DIFF NEEDED? NO
[2016-11-05 05:53] LABS: BASO% 0.4 % (0.0-0.8); EOS# 0.63 X1000 (0.0-0.7); EOS% 5.5 % (0.0-10.0); HEMATOCRIT 36.1 % (37.0-47.0); HEMOGLOBIN 11.8 g/dL (12.0-16.0); LYMPH# 2.59 X1000 (1.2-3.4); LYMPH% 22.7 % (20.5-51.1); MCH 31.3 PG (27-31); MCHC 32.7 g/dL (33-37); MCV 95.8 FL (81-99); MONO# 1.14 X1000 (0.11-0.59); MPV 10.3 FL (7.4-10.4); NEUT% 61.4 % (42.2-75.2); PLT 560 X1000 (130-400); RBC 3.77 XMIL (4.2-5.4)
[2016-11-05 06:02] LABS: AGAP 11; BUN 6 mg/dL (8-22); CALCIUM 8.2 mg/dL (8.8-10.2); CHLORIDE 101 mmol/L (98-107); COSMO 275; POTASSIUM 3.8 mmol/L (3.5-5.1); SODIUM 139 mmol/L (136-145); TCO2 27 mmol/L (25-35)
[2016-11-05] MEDS: PROTONIX PO SCH (06:55)
[2016-11-05] MEDS: COLACE PO SCH ×2 (08:33→20:35)
--- NOTE | 2016-11-05 09:03 | PROGRESS NOTE ---
DATE: 11/05/2016 SUBJECTIVE: Ms. Vegas is now hospital day 2 from re-admission after exploratory laparotomy by Dr. Gardner for small bowel obstruction. She was admitted through our emergency department with vomiting, and flat and upright abdominal films which showed dilated small bowel loops. She underwent an exploratory laparotomy on 10/24/2016, so is now postop day 12. OBJECTIVE: Her midline incision still has skin clips but it is healing well. Her abdomen seems to be fairly soft this morning. She states that she is having some flatus. We have not used an NG tube. Her white blood cell count has gone from 18-11 over night. Her BUN and creatinine are 6 and 0.5. We do not have any reports from her abdominal x-ray ordered this morning. We will plan to increase her activity and again try to advance her diet. cc: MD Guillaume Cevallos MD
--- NOTE | 2016-11-05 10:22 | Diag Imaging Result Document ---
PROCEDURE NAME: FLAT/UPRIGHT ABD/1 VIEW CHEST - 11/05/2016 FLAT AND UPRIGHT AND CHEST, THREE VIEWS: COMPARISON: 11/04/2016. FINDINGS: The lungs are well expanded. There are no infiltrates. No cardiomegaly. No free air beneath the diaphragm. There are midline skin abdullahi. There are several air distended loops of small bowel. These are less distended than on the prior study. Debris is found throughout the colon. No organomegaly. There are surgical clips in the pelvis. IMPRESSION: Improvement in the postoperative ileus. The patient does have constipation.
[2016-11-05] MEDS: D5 1/2 NS + KCL 20 MEQ 1,000 ML IV SCH ×2 (12:26→22:44)
[2016-11-05] MEDS: ZOFRAN PO PRN ×3 (12:45→22:44)
[2016-11-05] MEDS: SEROQUEL PO SCH (20:35)
[2016-11-06] MEDS: MORPHINE IV PRN (06:29)
[2016-11-06] MEDS: PROTONIX PO SCH (06:29)
[2016-11-06 07:38] VITALS: BP 136/77
--- NOTE | 2016-11-06 18:50 | DISCHARGE SUMMARY ---
ADMISSION DATE: 11/04/2016 DISCHARGE DATE: 11/06/2016 ADMITTING DIAGNOSIS: Postoperative ileus. DISCHARGE DIAGNOSIS: Postoperative ileus. PRINCIPAL PROCEDURE: Admission with IV fluids, NPO and serial abdominal exams and x-rays. She refused an NG tube. DISCHARGE DISABILITIES: Full. DISCHARGE DISPOSITION: She is going to see Dr. Gardner in our outpatient offices this coming Monday. DISCHARGE MEDICATIONS: She is to return to her home medications. HOSPITAL COURSE: Ms. Vegas is a 51-year-old white female who on 10/24/2016 underwent exploratory laparotomy with lysis of adhesions by Dr. Guillaume Gardner for a small bowel obstruction. 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 Most recently, Dr. Gardner performed exploratory laparotomy with lysis of adhesions. On Monday she presented to our emergency department for 11/04/2016 with vomiting and abdominal distention and an abdominal x-ray showed a severely distended small bowel consistent with diffuse ileus. She was initially placed NPO. She did not want an NG tube and on hospital day 2 abdominal film showed improvement in her postoperative ileus and stated that the patient did have some constipation. We started her on liquids and she tolerated these. She was having flatus. Her abdomen was soft. Her midline incision was healing well and she was anxious to go home so we felt on hospital day 3, that she could go home with followup with Dr. Gardner this coming Monday in our outpatient offices. cc: MD Guillaume Cevallos MD
== END 2016-11-06 10:28 | disposition home or self-care (01) ==
LOC: ED 10:33 → 4N 14:43
PROVIDERS: ADMIT Surgery; ATTEND Surgery